=== PATIENT | female | born 1985 | race Two or more races ===

== ENCOUNTER 2018-05-09 08:16 | Emergency (ER) | payer MEDICAID ==
[~2018-05-09] VITALS: Ht 157.5 cm; Wt 82.0 kg
[2018-05-09] MEDS ORDERED: KETOROLAC 60MG/2ML VIAL IM ONE (10:00)
[2018-05-09 11:05] VITALS: BP 113/71
== END 2018-05-09 11:07 | disposition home or self-care (01) ==
LOC: ER 08:16
DX: M25.511 Pain in right shoulder (principal); Z90.710 Acquired absence of both cervix and uterus
CPT/HCPCS: 73030; 81025; 96372; 99283; J1885